=== PATIENT | male | born 1980 | race Asian ===

== ENCOUNTER 2016-12-04 13:01 | Emergency (ER) | payer OTHER ==
[~2016-12-04] VITALS: Ht 182.9 cm; Wt 63.5 kg
[2016-12-04 14:08] LABS: POTASSIUM 3.7 mmol/L (3.6-5.2); SODIUM 133 mmol/L (136-145)
[2016-12-04 14:19] LABS: PLATELET COUNT 509 K/uL (142-355)
[2016-12-04 15:00] VITALS: BP 126/89; TEMP 98
== END 2016-12-04 15:00 | disposition home or self-care (01) ==
LOC: ED 13:01
DX: J40 Bronchitis, not specified as acute or chronic (principal); J18.9 Pneumonia, unspecified organism
CPT/HCPCS: 80053; 85027; 96372; 99283; J0696; J1885